=== PATIENT | female | born 1945 | race Caucasian/White ===

== ENCOUNTER 2021-10-08 07:00 | Day surgery (SDC) | payer MEDICARE, OTHER ==
[2021-10-08] MEDS ORDERED: Depo-Medrol 40 MG/ML IM ONE (07:01)
[2021-10-08] MEDS ORDERED: Sodium Chloride 0.9(Preservative Free) 10 ML IJ ONE (07:01)
[2021-10-08] MEDS ORDERED: Lactated Ringers 1,000 ML IV ONE (08:23)
[2021-10-08] MEDS ORDERED: DIPRIVAN 200 MG/20 ML IV ONE (09:10)
--- NOTE | 2021-10-08 10:06 | XRAY ---
1 minute 30 seconds of fluoroscopy was used in surgery for a left L3-L5 transforaminal MARKIE.
--- NOTE | 2021-10-08 10:08 | XRAY ---
Indication: Left L3-L5 transforaminal MARKIE. Intraoperative fluoroscopy provided for 1 minute 30 seconds. 4 digital spot images submitted for interpretation demonstrates posterior needle tips projecting over the expected left L3 and L4 nerve roots. Small amount of contrast injected for needle tip placement. Correlate with intraoperative findings/report.
== END 2021-10-08 09:23 | disposition home or self-care (01) ==
LOC: SDC-PAIN 07:00
PROVIDERS: ATTEND Psychiatry & Neurology Pain Medicine
DX: M54.16 Radiculopathy, lumbar region (principal); E11.9 Type 2 diabetes mellitus without complications; I10 Essential (primary) hypertension; Z79.899 Other long term (current) drug therapy
CPT/HCPCS: 64483; 64484; 72100; 77003; 82947; J1030; J2704; Q9966

== ENCOUNTER 2021-11-05 09:40 | Day surgery (SDC) | payer MEDICARE, OTHER ==
[2021-11-05] MEDS ORDERED: Xylocaine 1% Vial 30 ML PF IJ ONE (09:41)
[2021-11-05] MEDS ORDERED: Sodium Chloride 0.9(Preservative Free) 10 ML IJ ONE (09:41)
[2021-11-05] MEDS ORDERED: Depo-Medrol 40 MG/ML IM ONE (09:41)
[2021-11-05] MEDS ORDERED: DIPRIVAN 200 MG/20 ML IV ONE (11:45)
[2021-11-05] MEDS ORDERED: Lactated Ringers 1,000 ML IV ONE (12:25)
--- NOTE | 2021-11-05 13:41 | XRAY ---
Indication: Caudal MARKIE Intraoperative fluoroscopy provided for 1 minute 8 seconds. 3 digital spot image submitted for interpretation demonstrates caudal needle tip projecting mid sacrum. Small amount of contrast injected for needle tip placement. Correlate with intraoperative findings/report.
--- NOTE | 2021-11-05 13:45 | XRAY ---
1 minute and 8 seconds fluoroscopy time in surgery for lumbar MARKIE.
== END 2021-11-05 12:25 | disposition home or self-care (01) ==
LOC: SDC-PAIN 09:40
PROVIDERS: ATTEND Psychiatry & Neurology Pain Medicine
DX: M54.16 Radiculopathy, lumbar region (principal); E11.9 Type 2 diabetes mellitus without complications; Z79.899 Other long term (current) drug therapy
CPT/HCPCS: 62323; 72100; 77003; 82947; J1030; J2001; J2704; Q9966

== ENCOUNTER 2022-01-13 07:45 | Day surgery (SDC) | payer MEDICARE, OTHER ==
[2022-01-13] MEDS ORDERED: Marcaine Mpf 0.5% Vial 30 Ml IJ ONE (07:46)
[2022-01-13] MEDS ORDERED: Depo-Medrol 40 MG/ML IM ONE (07:46)
[2022-01-13] MEDS ORDERED: DIPRIVAN 200 MG/20 ML IV ONE (09:59)
[2022-01-13] MEDS ORDERED: Lactated Ringers 1,000 ML IV ONE (11:34)
--- NOTE | 2022-01-14 18:30 | XRAY ---
21 seconds fluoroscopy time in surgery for intra-articular injection of the left hip.
--- NOTE | 2022-01-15 15:59 | XRAY ---
Indication: Left hip intra-articular injection. Intraoperative fluoroscopy provided for 21 seconds. 1 spot image(s) submitted for interpetation demonstrates needle tip projecting lateral to the upper lateral left right femoral neck. Small amount of contrast injected for needle tip placement. Correlate with intraoperative findings/report.
== END 2022-01-13 10:27 | disposition home or self-care (01) ==
LOC: SDC-PAIN 07:45
PROVIDERS: ATTEND Psychiatry & Neurology Pain Medicine
DX: M16.12 Unilateral primary osteoarthritis, left hip (principal); E11.9 Type 2 diabetes mellitus without complications; Z79.899 Other long term (current) drug therapy
CPT/HCPCS: 20610; 73501; 77002; 82947; J1030; J2704; Q9966

== ENCOUNTER 2022-11-21 15:47 | Emergency (ER) | payer OTHER, MEDICARE ==
--- NOTE | 2022-11-21 18:05 | XRAY ---
CLINICAL HISTORY:fall; COMPARISON:None; TECHNIQUES:Multiple, contiguous, non-enhanced CT scan of the brain in the axial plane with multiplanar reconstructions in bony and soft tissue windows. CTDI-53.92 mGy ;Total DLP-1965.47 mGy.cm; FINDINGS: Normal CT attenuation of both cerebral hemispheres with no areas of abnormal attenuation values. Senile atrophic changes. No suspicious space-occupying lesions. No intra or extra-axial collections of fresh blood density. Normal size and shape of the ventricles, basal cisterns and cortical sulci. Basal ganglia, thalamus and internal capsule appear normal. Brainstem and lamar appear normal. No shift of midline structures. Unremarkable posterior fossa. Largely preserved cranial calvarial bones. Visualized paranasal sinuses appear clear. IMPRESSION: Trauma patient with no intracranial hematoma. Senile atrophic changes. No acute intracranial abnormality. Electronically Signed by: Tayler Alejo MD. (11/21/2022 17:02:18 FLOW TRADER)
[2022-11-21 18:07] VITALS: BP 129/72; PULSE 83; O2SAT 98
--- NOTE | 2022-11-21 18:23 | XRAY ---
CLINICAL HISTORY:fall; COMPARISON:None; TECHNIQUES:Axial images were obtained through the cervical spine without intravenous contrast. Sagittal and coronal reconstructions were obtained.Total DLP-1965.47;CTDI- 41.62; FINDINGS: Reduced cervical lordotic curve suggestive of muscle spasm. Normal CT appearance of the craniocervical junction. No vertebral wedging or collapse. Preserved spinal canal with no retropulsed fragments. Marginal Osteophytes with narrowed C4-C5, C5-C6 and C6-C7 cervical disks. At C2-C3, C3-C4 there is mild disc bulge centrally compressing the thecal sac and indenting lateral recess. At C4-C5, C5-C6, C6-C7 levels, there is posterior osteophyte disc complex compressing the thecal sac and encroaching upon lateral recesses and neural foramina. Facet joint arthritic changes most prominent at C2-C3, C3-C4 levels. Mild anterolisthesis of C2 over C3 and C3 over C4 with subluxed uncovertebral joints. The neural arches are preserved. Normal appearance of the atlantoaxial joint. Atlantodental osteoarthritic changes. No paraspinal masses or collections. IMPRESSION: History of fall with no related significant spinal injury. Neck muscle spasm. Cervical spondylo- degenerative changes with marginal osteophytes and multilevel degenerated disks, more at C4-C5, C5-C6, C6-C7 discs as described. MRI is suggested for further evaluation if clinically needed. Facet joint arthritic changes most prominent at C2-C3, C3-C4 levels. Mild anterolisthesis of C2 over C3 and C3 over C4. Electronically Signed by: Tayler Alejo MD. (11/21/2022 17:17:35 BLENDING OPERATOR)
--- NOTE | 2022-11-21 18:25 | XRAY ---
CLINICAL HISTORY:Fall; COMPARISON:None; TECHNIQUES:Contiguous, multislice, non-enhanced CT scan of the facial bones with multiplanar reconstructions. Total DLP-1965.47; CTDI-21.5; FINDINGS: History of fall showing intact nasal bones. Grossly unremarkable other examined facial bones. No definite fracture could be individualized. Intact bony boundaries of orbits and paranasal sinuses. No air-fluid levels. Deviated nasal septum towards left side with septal spur pointing towards left middle meatus. Amanda bullosa in the right middle turbinat. No osteolytic or sclerotic focal bony lesions. Normal CT appearance of temporomandibular joints on both sides. No soft tissue masses or collections. IMPRESSION: Grossly unremarkable CT of facial bones. Electronically Signed by: Tayler Alejo MD. (11/21/2022 17:19:51 CIVIL DESIGNER)
--- NOTE | 2022-11-21 18:31 | ERPHSYRPT ---
- History of Present Illness Time Seen by Provider: 11/21/22 16:35 Source: patient Exam Limitations: no limitations Patient Subjective Stated Complaint: Fall Triage Nursing Assessment: Patient ambulated back to ED using walker per self and transferred self to bed. Patient was walking with a cane when she stepped off of the curb and lost her balance causing her to fall on concrete to right side. Patient fell and hit right side of face, right shoulder and right knee. Patient complains of right sided neck and shoulder pain. Patient has small abrasion noted to right knee and bruise to right eye. Physician History: Patient is here with fall at home. Just prior to arrival patient was using a cane instead of her usual walker. Patient states that she had a misstep. Patient states that she fell forward patient now has right shoulder right knee pain. Patient has neck pain, did fall and hit her head. Patient has orbital bruising around her right eye. Allergies/Adverse Reactions: simvastatin [From Zocor] Allergy (Verified 11/21/22 16:24) Hx Influenza Vaccination/Date Given: Yes Hx Pneumococcal Vaccination/Date Given: No Immunizations Up to Date: Yes Travel Risk - International Travel Have you traveled outside of the country in past 3 weeks: No - Coronavirus Screening Are you exhibiting any of the following symptoms?: No Close contact with a COVID-19 positive Pt in past 14-21 Days: No - Vaccine Status Have you recieved a Covid-19 vaccination: Yes Animal Care Supervisor: Unknown - Vaccination Dates Date of 2cond Vaccination (if applicable): na Dates if Unknown: na - Review of Systems Constitutional: No Fever, No Chills Eyes: No Symptoms Ears, Nose, & Throat: No Symptoms Respiratory: No Cough, No Dyspnea Cardiac: No Chest Pain, No Edema, No Syncope Abdominal/Gastrointestinal: No Abdominal Pain, No Nausea, No Vomiting, No Diarrhea Genitourinary Symptoms: No Dysuria Musculoskeletal: No Back Pain, No Neck Pain Skin: No Rash Neurological: No Dizziness, No Focal Weakness, No Sensory Changes Psychological: No Symptoms Endocrine: No Symptoms All Other Systems: Reviewed and Negative - Past Medical History Pertinent Past Medical History: Yes Neurological History: Stroke ENT History: No Pertinent History Cardiac History: High Cholesterol, Hypertension Respiratory History: Asthma Endocrine Medical History: Diabetes Type II Musculoskeletal History: No Pertinent History GI Medical History: Diverticulitis History: No Pertinent History Psycho-Social History: Depression Female Reproductive Disorders: No Pertinent History 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 - Past Surgical History Past Surgical History: Yes Cardiac: No Pertinent History Respiratory: No Pertinent History Gastrointestinal: Appendectomy, Colon Resection Genitourinary: No Pertinent History Musculoskeletal: No Pertinent History Female Surgical History: Hysterectomy - Social History Smoking Status: Never smoker Exposure to second hand smoke: No Drug Use: none Patient Lives Alone: Yes - Nursing Vital Signs Nursing Vital Signs: Initial Vital Signs Temperature 96.0 F 11/21/22 16:25 Pulse Rate 95 H 11/21/22 16:25 Respiratory Rate 18 11/21/22 16:25 Blood Pressure 149/64 11/21/22 16:25 O2 Sat by Pulse Oximetry 96 11/21/22 16:25 Pain Scale Pain Intensity 0 - Physical Exam General Appearance: no apparent distress, alert Eye Exam: PERRL/EOMI, eyes nml inspection Ears, Nose, Throat Exam: normal ENT inspection, TMs normal, pharynx normal, moist mucous membranes Neck Exam: normal inspection, non-tender, supple, full range of motion Respiratory Exam: normal breath sounds, lungs clear, No respiratory distress Cardiovascular Exam: regular rate/rhythm, normal heart sounds, normal peripheral pulses Gastrointestinal/Abdomen Exam: soft, normal bowel sounds, No tenderness, No mass Back Exam: normal inspection, normal range of motion, No CVA tenderness, No vertebral tenderness Extremity Exam: normal inspection, normal range of motion, pelvis stable Neurologic Exam: alert, oriented x 3, cooperative, normal mood/affect, nml cerebellar function, nml station & gait, sensation nml, No motor deficits Skin Exam: normal color, warm, dry, No rash Lymphatic Exam: No adenopathy SpO2: 98 Comments: 11/21/22 19:10 Patient has some minimal C-spine tenderness. Patient has right shoulder tenderness. Patient has right knee tenderness. No obvious deformity. 2+ cap refill, neurovascularly intact. No other injuries. Patient has no head contusion. Eye exam: Extraocular movements are intact Pupils are equally round and reactive to light Eyelids/under eyelids: normal Conjunctivae and sclera: normal Patient has some periorbital bruising. No proptosis. No signs of postseptal hematoma. - Course Nursing assessment & vital signs reviewed: Yes EKG Interpreted by Me: Sinus Rhythm Ordered Tests: Active Orders 24 hr Category Date Time Status CERVICAL SPINE WO CONTRAST [CT] Stat Exams 11/21/22 16:43 Completed FACIAL BONES WO CONTRAST [CT] Stat Exams 11/21/22 16:42 Completed HEAD WITHOUT CONTRAST [CT] Stat Exams 11/21/22 16:42 Completed KNEE (3 VIEWS) Stat Exams 11/21/22 16:43 Completed SHOULDER Stat Exams 11/21/22 16:43 Completed - Progress Progress: improved Progress Note: 11/21/22 19:12 Differential diagnosis includes head bleed, fracture, neck fracture, other injury. Plan for imaging and x-rays. X-ray demonstrates no fracture - my read Patient will need repeat XRs in one week, if pain continues. Return here or see PCP. CT scans officially read by radiology. No neck fracture, C-spine fracture, intracranial or maxillary fracture. Usual concussion protocols given. Patient will need follow-up with PCP closely Counseled pt/family regarding: diagnosis, need for follow-up, rad results, smoking cessation Medical Desision Making - Independent Historian Additional History obtained from: Child - Diagnostic Testing Diagnostic test were ordered, analyzed, and reviewed by me: Yes Radiological Interpretation: Interpreted by me, Reviewed by me - Departure Departure Disposition: Home Clinical Impression: Fall, Facial bruising, Shoulder pain, Knee pain Condition: Stable Critical Care Time: No Referrals: NICK MATHEWS MD [Primary Care Provider] - Follow up/PCP as directed Instructions: Contusion (DC), Preventing Falls in Older Adults
--- NOTE | 2022-11-21 18:47 | XRAY ---
Indication: Status post fall. Comparison: None 3 view right knee demonstrates osteopenia, faint degenerative chondrocalcinosis, tiny posterior fabella, and moderate scattered vascular calcifications. No other bony, articular, or soft tissue abnormalities.
--- NOTE | 2022-11-21 18:49 | XRAY ---
Indication: Status post fall. Comparison: None 3 view right shoulder demonstrates osteopenia, moderate acromioclavicular/glenohumeral degenerative changes, high riding humeral head commonly seen with rotator cuff tear, mild multilevel degenerative spondylosis, and mild dextroscoliosis centered at T6. No other bony, articular, or soft tissue abnormalities.
== END 2022-11-21 18:44 | disposition home or self-care (01) ==
LOC: ED 15:47
DX: S00.12XA Contusion of left eyelid and periocular area, initial encounter (principal); S00.11XA Contusion of right eyelid and periocular area, initial encounter; W10.1XXA Fall (on)(from) sidewalk curb, initial encounter; Y93.01 Activity, walking, marching and hiking; M25.511 Pain in right shoulder; M25.561 Pain in right knee; M54.2 Cervicalgia; E78.5 Hyperlipidemia, unspecified; I10 Essential (primary) hypertension; E11.9 Type 2 diabetes mellitus without complications
CPT/HCPCS: 70450; 70486; 72125; 73030; 73562; 99283